=== PATIENT | female | born 1960 | race Caucasian/White ===

== ENCOUNTER 2023-06-20 18:35 | Outpatient (CLI) | payer OTHER, SELFPAY | END 2023-06-20 18:36 | disposition home or self-care (01) | LOC: AMB 07-05 15:38 | PROVIDERS: PCP Obstetrics & Gynecology; Visit Provider Family Medicine | DX: S19.9XXS Unspecified injury of neck, sequela (principal); S49.92XA Unspecified injury of left shoulder and upper arm, initial encounter; V43.62XA Car passenger injured in collision with other type car in traffic accident, initial encounter; Y92.410 Unspecified street and highway as the place of occurrence of the external cause | CPT/HCPCS: A0425; A0429 ==

== ENCOUNTER 2023-06-20 19:22 | Emergency (ER) | payer OTHER, SELFPAY ==
[2023-06-20 19:25] VITALS: BP 137/78; PULSE 100; RESP 18; TEMP 36.6; O2SAT 100; BMI 33.5
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
[2023-06-20 20:28] LABS: Basophils Absolute Auto 0.04 K/uL (0.00-0.30); Basophils Percent Auto 0.7 % (0.0-3.0); Eosinophils Absolute Auto 0.14 K/uL (0.00-0.50); Eosinophils Percent Auto 2.4 % (0.0-7.0); Hematocrit 38.8 % (33.0-51.0); Immature Granulocytes Abs Auto 0.01 K/uL (0.00-0.30); Immature Granulocytes Pct Auto 0.2 %; Lymphocytes Absolute Auto 1.85 K/uL (0.90-2.90); Lymphocytes Percent Auto 31.7 % (20-44); Mean Corpuscular HGB Conc 34 gm/dL (32-36); Mean Corpuscular Hemoglobin 30 pg (26-34); Mean Corpuscular Volume 88 fL (80-100); Monocytes Percent Auto 10.6 % (0.0-11.0); Neutrophils Absolute Auto 3.18 K/uL (1.7-7.0); Neutrophils Percent Auto 54.4 % (42.0-72.0); Platelet Count* 220 K/uL (140-440); Red Blood Count 4.39 m/uL (4.00-5.20); White Blood Count* 5.84 K/uL (4.50-11.00)
[2023-06-20 20:31] LABS: Slide Review Reflex No
[2023-06-20 20:50] VITALS: PULSE 88; O2SAT 96
[2023-06-20 20:52] VITALS: BP 130/67
== END 2023-06-20 21:43 | disposition home or self-care (01) ==
PROVIDERS: Emergency Provider Family Medicine; PCP Obstetrics & Gynecology
DX: S16.1XXA Strain of muscle, fascia and tendon at neck level, initial encounter (principal); S39.012A Strain of muscle, fascia and tendon of lower back, initial encounter; V43.62XA Car passenger injured in collision with other type car in traffic accident, initial encounter; Y92.411 Interstate highway as the place of occurrence of the external cause
CPT/HCPCS: 36415; 71046; 72040; 72100; 84484; 85025; 93005; 99284; 99285